=== PATIENT | male | born 2000 | race African-American/Black ===

== ENCOUNTER 2023-05-20 04:52 | Emergency (ER) | payer OTHER ==
[2023-05-20] MEDS ORDERED: KETOROLAC 60 MG/2 ML VIAL IM STA (05:36)
[2023-05-20] MEDS ORDERED: ACETAMINOPHEN 500 MG TABLET PO STA (05:36)
[2023-05-20] MEDS ORDERED: ONDANSETRON ODT 4 MG TABLET TL STA (05:36)
--- NOTE | 2023-05-20 05:51 | ED Physician Documentation ---
History of Present Illness - Stated complaint Stated Complaint: HEAD PX - Chief complaint Chief Complaint: General - History obtained from History obtained from: Patient - Additonal information Additional information: Patient is a 22-year-old male presenting for evaluations of Headache with nausea and vomiting. 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 He also states that he will have vomiting episodes 2-3 times a week usually in the middle of the night where he starts gagging and needs to throw up. He has not found an association between the episodes of emesis and food.He has not been evaluated by his PCM at the [facility] for this yet. He did go to the walk-in clinic at [facility] last week and reports they want to do blood tests and he is supposed to go there today to get the blood test done. He also believes they advised that he should have a referral to gastroenterology. He denies head injury or trauma. He does not take anything for his headaches and states he just manages through them. He is able to eat and drink through the day and occasionally feels nausea but usually the vomiting episodes will happen in the middle of the night where he wakes up out of the blue.He does not take any current medications. Drinks rarely and no drug use.No fever. No productive cough, chest pain or shortness of air. No abdominal symptoms, flank pain or dysuria.Patient also reports having poor sleep for numerous months and says he often has trouble falling asleep and staying asleep. Review of Systems Constitutional: denies: Fever Cardiac: denies: Chest pain / pressure Respiratory: denies: Dyspnea GI: reports: Nausea, Vomiting. denies: Abdominal Pain : denies: Dysuria Neurologic: reports: Headache. denies: Head injury Psychiatric: reports: Insomnia PD PAST MEDICAL HISTORY - Past Medical History Past Medical History: No - Past Surgical History Past Surgical History: No - Present Medications Home Medications: Ambulatory Orders Medication Instructions Recorded Confirmed Ondansetron Odt [Zofran] 4 mg TL Q6H PRN #10 tablet 05/20/23 - Allergies Allergies/Adverse Reactions: Allergies Allergy/AdvReac Type Severity Reaction Status Date / Time No Known Drug Allergies Allergy Verified 05/20/23 05:04 - Social History Does the pt smoke?: No Smoking Status: Never smoker Does the pt drink ETOH?: No Does the pt have substance abuse?: No - Immunizations Immunizations are current?: Yes - POLST Patient has POLST: No PD ED PE NORMAL - General General: Alert and oriented X 3, No acute distress, Well developed/nourished - HEENT HEENT: Atraumatic, PERRL, EOMI, Moist mucous membranes, Pharynx benign - Neck Neck: Supple, no meningeal sign - Cardiac Cardiac: RRR, No murmur - Respiratory Respiratory: No respiratory distress, Clear bilaterally - Abdomen Abdomen: Normal bowel sounds, Soft, Non tender, Non distended - Derm Derm: Warm and dry - Neuro Neuro: Alert and oriented X 3, zinc plater 2-12 intact, No motor deficit, No sensory deficit, Normal speech Results - Vitals Vitals: Vital Signs - 24 hr 05/20/23 05/20/23 05:01 06:19 Temperature 36.7 C 36.6 C Heart Rate 84 82 Respiratory 18 20 Rate Blood Pressure 157/90 H 128/74 O2 Saturation 98 100 Oxygen O2 Source Room air PD Medical Decision Making - ED course Complexity details: re-evaluated patient, d/w family ED course: Patient is a 22-year-old male presenting for evaluation of headaches and episodes of nausea and vomiting that been ongoing for 7 to 12 months. No significant change in his symptoms here recently. He has not tried anything for his symptoms. Denies head injury, blood thinner use. His neuro exam is normal. I do not think his symptoms represent a subarachnoid hemorrhage or meningitis and he does not have features to suggest that this is related to an intracranial mass. Patient is well-appearing here. Does admit to some stress in his life and having trouble with sleepingand symptoms started after return home from deployment . He was recently seen in the outpatient clinic and is scheduled to have blood test done today. Patient was offered medications to help his symptoms including through IV route but he would prefer to avoid an IV at this time. He reports feeling better after ODT Zofran as well as IM ketorolac and p.o. acetaminophen. Patient counseled on need for close [facility] He is also counseled on concerning symptoms to return for. Departure - Departure Disposition: 01 Home, Self Care Clinical Impression: Headache, Trouble getting to sleep, Nausea & vomiting Condition: Stable Instructions: ED Cephalgia Unspecified, ED Insomnia Follow-Up: JUAN Lundy [Provider Group] Prescriptions: Ondansetron Odt [Zofran] 4 mg TL Q6H PRN #10 tablet PRN Reason: Nausea / Vomiting Comments: I have sent prescription for an antinausea medications to [facility] in [place]. Please use this as needed. I would recommend close follow-up with your primary care at the [facility] especially because your symptoms have been ongoing for such a long time. For your nausea and vomiting that wakes you up at night you may benefit from a referral to a master yacht and having an upper endoscopy to take a look at your esophagus and your stomach to see if there is an issue they are causing your symptoms. I would recommend trying a meditation liana or exercise to see if this helps you with your sleep. If at anytime you feel that your symptoms are getting worse or have new concerns you can always return to the emergency department for another evaluation. Forms: PCP List, Activity restrictions Discharge Date/Time: 05/20/23 06:20
[2023-05-20 06:24] VITALS: BP 128/74; O2SAT 100
== END 2023-05-20 06:20 | disposition home or self-care (01) ==
LOC: ED 04:52
DX: R51.9 Headache, unspecified (principal); R11.2 Nausea with vomiting, unspecified; G47.00 Insomnia, unspecified
CPT/HCPCS: 96372; 99283; A9270; Q0162